=== PATIENT | male | born 1990 | race Caucasian/White ===

== ENCOUNTER 2018-03-30 12:29 | Emergency (ER) | payer BC ==
[~2018-03-30] VITALS: Ht 175.3 cm; Wt 108.9 kg
[2018-03-30] MEDS ORDERED: AMOX1TAB61 PO (13:08)
[2018-03-30] MEDS ORDERED: NAPR-683 PO (13:08)
--- NOTE | 2018-03-30 13:08 | PHYS DOC ---
Past History Past Medical History: No Pertinent History Adult General Chief Complaint Chief Complaint: ANIMAL BITE HPI HPI Patient is a 27 year old right-handed male who presents with complaining of dog bite to right wrist. Patient states he tried to feed a street dog and hit by his right wrist prior to arrival to ER. He denies focal neurodeficit and rated his pain as a mild pain. Patient states he washed his hand extensively at home. Patient is not up-to-date with tetanus immunization. Review of Systems Review of Systems Constitutional: Denies fever or chills [] Eyes: Denies change in visual acuity, redness, or eye pain [] HENT: Denies nasal congestion or sore throat [] Respiratory: Denies cough or shortness of breath [] Cardiovascular: No additional information not addressed in HPI [] GI: Denies abdominal pain, nausea, vomiting, bloody stools or diarrhea [] : Denies dysuria or hematuria [] Musculoskeletal: Denies back pain or joint pain [] Integument: Denies rash or skin lesions [] Neurologic: Denies headache, focal weakness or sensory changes [] Endocrine: Denies polyuria or polydipsia [] All other systems were reviewed and found to be within normal limits, except as documented in this note. Current Medications Current Medications Current Medications Medications (Trade) Dose Ordered Sig/Brian Start Time Stop Time Status Last Admin Dose Admin Diphtheria/ Tetanus/Acell Pertussis (Boostrix) 0.5 ml ONCE ONCE 03/30/18 13:15 03/30/18 13:16 Allergies Allergies Allergies Coded Allergies Type Severity Reaction Last Updated Verified No Known Drug Allergies 03/30/18 No Physical Exam Physical Exam Constitutional: Well developed, well nourished, no acute distress, non-toxic appearance. [] HENT: Normocephalic, atraumatic Eyes: PERRLA, EOMI, conjunctiva normal, no discharge. [] Neck: Normal range of motion, no tenderness, supple, no stridor. [] Cardiovascular:Heart rate regular rhythm, no murmur [] Lungs & Thorax: Bilateral breath sounds clear to auscultation [][] Skin: Warm, dry, no erythema, no rash. [] Back: No tenderness, no CVA tenderness. [] Extremities: 1 cm superficial laceration of volar side of the right place with few area of abrasion without active bleeding, No tenderness, no cyanosis, no clubbing, ROM intact, no edema. [] Neurologic: Alert and oriented X 3, normal motor function, normal sensory function, no focal deficits noted. [] Psychologic: Affect normal, judgement normal, mood normal. [] EKG EKG [] Radiology/Procedures Radiology/Procedures [] Course & Med Decision Making Course & Med Decision Making Evaluation of patient in ER showed 27-year-old male patient with street dog bite to right wrist. Patient refused to have rabies vaccine. Superficial laceration of right wrist was cleaned and and Steri-Strip and dressing was applied and patient instructed to follow with his primary care physician or public health department in the emergency room for rabies vaccination. Dragon Disclaimer Dragon Disclaimer This electronic medical record was generated, in whole or in part, using a voice recognition dictation system. Departure Departure: Impression: Primary Impression: Dog bite of right wrist Additional Impression: Not up to date with tetanus toxoid immunization Disposition: HOME, SELF-CARE (@1305) Condition: IMPROVED Referrals: PCP,NO (PCP) Patient Instructions: Animal Bite, Rabies Additional Instructions: Keep wound clean and dry Follow-up with your primary care physician in 2-3 days Return to ER if not getting better Follow-up with Public health department or emergency room if you change your mind regarding getting rabies vaccine Scripts Naproxen (NAPROSYN) 500 Mg Tablet 500 MG PO BID for pain, #14 TAB Prov: MICHAEL GREENWOOD MD 03/30/18 Amoxicillin/Potassium Clav (AUGMENTIN 875-125 TABLET) 1 Each Tablet 1 TAB PO BID for infection, #14 TAB Prov: MICHAEL GREENWOOD MD 03/30/18 Problem Qualifiers MICHAEL GREENWOOD MD Mar 30, 2018 13:08
[2018-03-30] MEDS ORDERED: DIPHTH,PERTUSS(ACELL),TET TOX 0.5 ML DISP.SYRIN. VAX IM ONE (13:15)
[2018-03-30 14:12] VITALS: BP 131/85
== END 2018-03-30 14:14 | disposition home or self-care (01) ==
LOC: ER 12:29
DX: S61.511A Laceration without foreign body of right wrist, initial encounter (principal); S61.551A Open bite of right wrist, initial encounter; W54.0XXA Bitten by dog, initial encounter; Y93.89 Activity, other specified; Y92.89 Other specified places as the place of occurrence of the external cause; Y99.8 Other external cause status
CPT/HCPCS: 90471; 90715; 99283-25

== ENCOUNTER 2018-04-02 12:18 | Emergency (ER) | payer BC ==
[~2018-04-02] VITALS: Ht 175.3 cm; Wt 108.9 kg
[~2018-04-02 12:18] MED LIST: AMOX1TAB61 PO; NAPR-683 PO
[2018-04-02 12:32] VITALS: BP 115/76
--- NOTE | 2018-04-02 13:10 | PHYS DOC ---
Past History Past Medical History: Other Past Surgical History: Other Smoking: Cigarettes Alcohol Use: Occasionally Drug Use: Marijuana Adult General Chief Complaint Chief Complaint: WRIST PAIN HPI HPI Patient is a 27-year-old male presents complaining of increasing right hand pain and swelling. 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 Denies any fever. Denies any purulent drainage. He is right-hand dominant. Review of Systems Review of Systems Constitutional: Denies fever or chills [] Eyes: Denies change in visual acuity, redness, or eye pain [] HENT: Denies nasal congestion or sore throat [] Respiratory: Denies cough or shortness of breath [] Cardiovascular: No no chest pain or palpitations[] GI: Denies abdominal pain, nausea, vomiting, bloody stools or diarrhea [] : Denies dysuria or hematuria [] Musculoskeletal: Denies back pain, see history of present illness[] Integument: Denies rash or skin lesions [] Neurologic: Denies headache, focal weakness or sensory changes [] Endocrine: Denies polyuria or polydipsia [] All other systems were reviewed and found to be within normal limits, except as documented in this note. Current Medications Current Medications Current Medications Medications (Trade) Dose Ordered Sig/Brian Start Time Stop Time Status Last Admin Dose Admin Clindamycin Phosphate 50 ml @ 100 mls/hr Q8HRS 04/02/18 14:00 UNV Levofloxacin/ Dextrose 100 ml @ 100 mls/hr 1X ONCE 04/02/18 13:00 04/02/18 13:59 UNV Allergies Allergies Allergies Coded Allergies Type Severity Reaction Last Updated Verified No Known Drug Allergies 04/02/18 No Physical Exam Physical Exam Constitutional: Well developed, well nourished, no acute distress, non-toxic appearance. [] HENT: Normocephalic, atraumatic, bilateral external ears normal, oropharynx moist, no oral exudates, nose normal. [] Eyes: PERRLA, EOMI, conjunctiva normal, no discharge. [] Neck: Normal range of motion, no tenderness, supple, no stridor. [] Cardiovascular:Heart rate regular rhythm, no murmur [] Lungs & Thorax: Bilateral breath sounds clear to auscultation [] Abdomen: Not examined. [] Skin: Warm, dry, mild erythema around the bite site, no purulent drainage. [] Back: No tenderness, no CVA tenderness. [] Extremities: Tenderness and swelling over the thenar eminence. Decreased range of motion with finger to thumb. 2 point is less than 5 mm. Capillary refill is less than 2 seconds, no cyanosis, no clubbing, . [] Neurologic: Alert and oriented X 3, normal motor function, normal sensory function, no focal deficits noted. [] Psychologic: Affect normal, judgement normal, mood normal. [] Current Patient Data Vital Signs Vital Signs Date Time Temp Pulse Resp B/P (MAP) Pulse Ox O2 Delivery O2 Flow Rate FiO2 04/02/18 12:32 97.9 79 18 100 Room Air EKG EKG [] Radiology/Procedures Radiology/Procedures [] Course & Med Decision Making Course & Med Decision Making Pertinent Labs and Imaging studies reviewed. (See chart for details) ED course and medical decision making: Patient arrived, was placed in bed, and tolerated exam well. Concerned about him failing outpatient treatment after initially doing better. Patient had IV access established and was given IV antibiotics. He was taken to and from x-ray without any complications. Initial consultation was made with [facility]. They do not have the hand expertise and so deferred on accepting the patient. Consultation then was made with [facility], accepted the patient in transfer. They request that the he be sent to the emergency department for initial evaluation. Also to keep the patient nothing by mouth.[] Dragon Disclaimer Dragon Disclaimer This electronic medical record was generated, in whole or in part, using a voice recognition dictation system. Departure Departure: Impression: Primary Impression: Dog bite of right wrist with infection Additional Impression: Failure of outpatient treatment Disposition: 05 TRANSFER OTHER Condition: IMPROVED Referrals: PCP,NO (PCP) Problem Qualifiers Primary Impression: Dog bite of right wrist with infection Encounter type: subsequent encounter Qualified Codes: S61.551D - Open bite of right wrist, subsequent encounter; L08.9 - Local infection of the skin and subcutaneous tissue, unspecified; W54.0XXD - Bitten by dog, subsequent encounter BIRDIE WEST DO Apr 02, 2018 13:10
[2018-04-02 13:20] LABS: BASO # 0.1 x10^3/uL (0.0-0.2); BASO % 1 % (0-3); EOS # 0.3 x10^3/uL (0.0-0.7); EOS % 3 % (0-3); HEMATOCRIT 44.8 % (39.0-53.0); HEMOGLOBIN 15.1 g/dL (13.0-17.5); LYMPH # 1.9 x10^3/uL (1.0-4.8); LYMPH % 17 % (24-48); MEAN CORPUSCULAR HEMOGLOBIN 31 pg (25-35); MEAN CORPUSCULAR HGB CONC 34 g/dL (31-37); MEAN CORPUSCULAR VOLUME 90 fL (79-100); MONO # 0.4 x10^3/uL (0.0-1.1); MONO % 4 % (0-9); NEUT # 8.5 x10^3uL (1.8-7.7); NEUT % 76 % (31-73); PLATELET COUNT 235 x10^3/uL (140-400); RED BLOOD COUNT 4.96 x10^6/uL (4.30-5.70); RED CELL DISTRIBUTION WIDTH 13.5 % (11.5-14.5); WHITE BLOOD COUNT 11.2 x10^3/uL (4.0-11.0)
--- NOTE | 2018-04-02 13:20 | RAD ---
Examination: 3 views of the right hand HISTORY: History of dog bite 1 week back, increasing pain, swelling over the thenar region COMPARISON: None available FINDINGS: The alignment of the metacarpophalangeal joints, interphalangeal joint grossly appears unremarkable. There is no acute fracture or dislocation identified. IMPRESSION: No acute osseous findings Electronically signed by: Jt Whiting MD (04/02/2018 1:17 PM) [facility]
[2018-04-02 13:33] LABS: ALBUMIN 3.8 g/dL (3.4-5.0); ALBUMIN/GLOBULIN RATIO 1.1 (1.0-1.7); CREATININE 0.8 mg/dL (0.7-1.3); GFR 116.9; POTASSIUM 4.3 mmol/L (3.5-5.1); TOTAL BILIRUBIN 0.5 mg/dL (0.2-1.0); TOTAL PROTEIN 7.4 g/dL (6.4-8.2)
[2018-04-02] MEDS ORDERED: CLINDAMYCIN 600MG PREMIX 50 ML IV SCH (14:00)
[2018-04-02 14:25] LABS: SEDIMENTATION RATE 18 (0-15)
== END 2018-04-02 14:46 | disposition short-term general hospital (02) ==
LOC: ER 12:18
DX: S61.551A Open bite of right wrist, initial encounter (principal); L08.9 Local infection of the skin and subcutaneous tissue, unspecified; F17.210 Nicotine dependence, cigarettes, uncomplicated; W54.0XXA Bitten by dog, initial encounter; Y93.89 Activity, other specified; Y92.89 Other specified places as the place of occurrence of the external cause; Y99.8 Other external cause status
CPT/HCPCS: 36415; 73130; 80053; 85025; 85610; 85651; 86140; 96365; 96368; 99285; J1956; J3490

== ENCOUNTER 2019-10-13 15:29 | Emergency (ER) | payer SELFPAY ==
[~2019-10-13] VITALS: Ht 175.3 cm; Wt 120.5 kg
[2019-10-13 15:35] VITALS: BP 117/81
--- NOTE | 2019-10-13 15:58 | PHYS DOC ---
Past History Past Medical History: No Pertinent History, Other Past Surgical History: Other Additional Past Surgical Histo: RIGHT LOWER LEG TITANIUM EHSAN Smoking: Cigarettes Alcohol Use: Occasionally Drug Use: Marijuana Adult General Chief Complaint Chief Complaint: ANKLE PROBLEM HPI HPI Patient is a 28-year-old male who presents with right foot pain. Patient reports 2 days ago walking up stairs in his house when entire staircase gave way, patient reports falling greater than 6 feet onto basement below. Patient reports landing on his right foot, unknown mechanism of injury or if he twisted foot but he reports ever since then, worsened pain to left lateral malleoli and extreme difficulty when ambulating. Patient has history of right orthopedic fixation of right lower extremity stemming from injury in high school. Patient reports a dull pain on right lateral ankle with mild radiation into foot and mild radiation to right lateral knee. Has not taken anything for pain. Patient reports abrasions to bilateral upper extremities in addition to generalized musculoskeletal soreness from impact of fall but has no other concerns today besides ongoing right ankle pain. Review of Systems Review of Systems Fourteen body systems of review of systems have been reviewed. See HPI for pertinent positives and negative responses, other damon all other systems are negative, non-pertinent or non-contributory Allergies Allergies Allergies Coded Allergies Type Severity Reaction Last Updated Verified No Known Drug Allergies 04/02/18 No Physical Exam Physical Exam Constitutional: Well developed, well nourished, no acute distress, non-toxic appearance. HENT: Normocephalic, atraumatic, bilateral external ears normal, oropharynx moist, no oral exudates, nose normal. Eyes: PERRLA, EOMI, conjunctiva normal, no discharge. Neck: Normal range of motion, no tenderness, supple, no stridor. Cardiovascular: Heart rate regular, sinus rhythm, no murmurs rubs or gallops Lungs & Thorax: Bilateral breath sounds clear to auscultation Abdomen: Bowel sounds normal, soft, no tenderness, no masses, no pulsatile masses. Nonsurgical abdomen, no peritoneal signs Skin: Warm, dry, no erythema, no rash. Back: No tenderness, no CVA tenderness. Extremities: No cyanosis, no clubbing, ROM intact, no edema. Abrasions noted to posterior aspects of bilateral upper extremities Right foot and ankle foot and Ankle Proximal Tibia and fibula nontender Medial malleolus nontender Lateral malleolus tender to palpation Calcaneus nontender Tarsometatarsal region tender to palpation Base of 5th nontender Rest of foot and ankle without marked tenderness Varus and Valgus Stress of ankle joint without significant laxity Decreased range of motion in all planes due to pain but otherwise 5/5 strength Skin on plantar section of midfoot without ecchymosis Capillary refill <2seconds and distal Sensation to light touch in tact per routine Compartments surrounding are soft Negative Morgan sign Neurologic: Alert and oriented X 3, grossly normal motor & sensory function, no focal deficits noted. Psychologic: Affect normal, judgement normal, mood normal. Current Patient Data Vital Signs Vital Signs Date Time Temp Pulse Resp B/P (MAP) Pulse Ox O2 Delivery O2 Flow Rate FiO2 10/13/19 15:35 97.9 74 20 117/81 (93) 97 Room Air EKG EKG [] Radiology/Procedures Radiology/Procedures PROCEDURE: ANKLE RIGHT 3V Right tibia and fibula 2 views: Reason for examination: Trauma. Fell down greater than 5 foot landing on right foot. Plate and screws are present in the distal fibula. Acute site of fracture of the right tibia and fibula are not seen. Bone density is normal. No abnormal periosteal reaction is seen. Knee and ankle joints appear to be maintained. IMPRESSION: No acute abnormality seen at the right tibia or fibula. Right ankle 3 views: Again noted is a plate and multiple screws in the distal fibula. No acute fracture or dislocation is seen at the right ankle. The bone density is normal. No abnormal periosteal reaction is seen. Joint spaces appear to be maintained. IMPRESSION: No acute bony abnormality at the right ankle. Right foot 3 views: No acute fracture or dislocation is seen. The bone density is normal. No abnormal periosteal reaction is seen. Joint spaces are maintained. IMPRESSION: No acute bony abnormality at the right foot. Electronically signed by: Niki Forrest MD (10/13/2019 4:11 PM) [facility]I Course & Med Decision Making Course & Med Decision Making Patient seen and evaluated on immediate ER arrival ABCs grossly non-concerning Comprehensive history and physical exam obtained, pertinent imaging studies ordered Radiographs reviewed with patient, no immediate bony abnormalities apparent by myself and radiologist, this was communicated with patient Discussed limited utility in further laboratory, diagnostic imaging or other interventions in the emergency department setting Joint decision to discharge home in stable condition with close PCP follow-up advised in upcoming 1 to 9 days time Discussed need for continued supportive care, NSAIDs or Tylenol for as needed pain control, and encourage performing ankle exercises and ambulating as much as tolerated Strict return precautions discussed at length with good understanding by patient, all questions and concerns addressed prior to ER departure in stable condition Parminder Disclaimer Parminder Disclaimer This electronic medical record was generated, in whole or in part, using a voice recognition dictation system. Departure Departure: Impression: Primary Impression: Contusion of ankle, right Disposition: 01 HOME/RESIDENCE PRIOR TO ADM Condition: STABLE Referrals: PCP,NO (PCP) Patient Instructions: Ankle Exercises (for Rehabilitation), RICE - Routine Care for Injuries Justification of Admission: Justification of Admission: Justification of Admission Dx: N/A BRIAN NEWELL DO Oct 13, 2019 15:58
--- NOTE | 2019-10-13 16:13 | RAD ---
Right tibia and fibula 2 views: Reason for examination: Trauma. Fell down greater than 5 foot landing on right foot. Plate and screws are present in the distal fibula. Acute site of fracture of the right tibia and fibula are not seen. Bone density is normal. No abnormal periosteal reaction is seen. Knee and ankle joints appear to be maintained. IMPRESSION: No acute abnormality seen at the right tibia or fibula. Right ankle 3 views: Again noted is a plate and multiple screws in the distal fibula. No acute fracture or dislocation is seen at the right ankle. The bone density is normal. No abnormal periosteal reaction is seen. Joint spaces appear to be maintained. IMPRESSION: No acute bony abnormality at the right ankle. Right foot 3 views: No acute fracture or dislocation is seen. The bone density is normal. No abnormal periosteal reaction is seen. Joint spaces are maintained. IMPRESSION: No acute bony abnormality at the right foot. Electronically signed by: Niki Forrest MD (10/13/2019 4:11 PM) JUNI
== END 2019-10-13 16:34 | disposition home or self-care (01) ==
LOC: ER 15:29
DX: S90.01XA Contusion of right ankle, initial encounter (principal); W17.89XA Other fall from one level to another, initial encounter; Y93.01 Activity, walking, marching and hiking; Y92.89 Other specified places as the place of occurrence of the external cause; Y99.8 Other external cause status; F17.210 Nicotine dependence, cigarettes, uncomplicated
CPT/HCPCS: 73590; 73610; 73630; 99284

== ENCOUNTER 2019-11-16 17:21 | Emergency (ER) | payer BC ==
[~2019-11-16] VITALS: Ht 175.3 cm; Wt 120.5 kg
--- NOTE | 2019-11-16 18:16 | RAD ---
Exam: Right ankle 3 views INDICATION: Injury from fall TECHNIQUE: Frontal, lateral and oblique views of the right ankle Comparisons: None FINDINGS: Lateral fixation plate along the distal fibula with numerous fixation screws. Bone mineralization is normal. Joint spaces are well-maintained. No acute or healed fractures. Soft tissues are unremarkable. IMPRESSION: No acute osseous abnormality identified. Electronically signed by: Valeria Carter MD (11/16/2019 6:13 PM) RAY
--- NOTE | 2019-11-16 18:44 | PHYS DOC ---
Past History Past Medical History: No Pertinent History, Other Past Surgical History: Other Additional Past Surgical Histo: RIGHT LOWER LEG TITANIUM EHSAN Smoking: Cigarettes Alcohol Use: Occasionally Drug Use: Marijuana General Adult EDM: Chief Complaint: LOWEREXTREMITY INJURY HPI: HPI: 28-year-old male presents with continued right ankle pain. He had an injury 1 month ago when he had a staircase collapsed and he fell. He is not sure exactly how he landed but he has had pain underneath his calcaneus and the lateral side of his ankle. X-rays at that time were negative. He presents for repeat x-rays and he does understand why it still hurts a month later. Patient does work on his feet every day. He denies any other injuries or complaints. Review of Systems: Review of Systems: Constitutional: Denies fever or chills Eyes: Denies change in visual acuity HENT: Denies nasal congestion or sore throat Respiratory: Denies cough or shortness of breath Cardiovascular: Denies chest pain or edema GI: Denies abdominal pain, nausea, vomiting, bloody stools or diarrhea : Denies dysuria Musculoskeletal: Right ankle pain Integument: Denies rash Neurologic: Denies headache, focal weakness or sensory changes Endocrine: Denies polyuria or polydipsia Lymphatic: Denies swollen glands Psychiatric: Denies depression or anxiety Heart Score: Risk Factors: Risk Factors: DM, Current or recent (<one month) smoker, HTN, HLP, family history of CAD, obesity. Risk Scores: Score 0 - 3: 2.5% MACE over next 6 weeks - Discharge Home Score 4 - 6: 20.3% MACE over next 6 weeks - Admit for Clinical Observation Score 7 - 10: 72.7% MACE over next 6 weeks - Early Invasive Strategies Allergies: Allergies: Allergies Coded Allergies Type Severity Reaction Last Updated Verified No Known Drug Allergies 04/02/18 No Physical Exam: PE: Constitutional: Well developed, well nourished, no acute distress, non-toxic appearance. [] HENT: Normocephalic, atraumatic, bilateral external ears normal, oropharynx moist, no oral exudates, nose normal. [] Eyes: PERRLA, EOMI, conjunctiva normal, no discharge. [] Neck: Normal range of motion, no tenderness, supple, no stridor. [] Cardiovascular: Heart rate regular rhythm, no murmur [] Lungs & Thorax: Bilateral breath sounds clear to auscultation [] Abdomen: Bowel sounds normal, soft, no tenderness, no masses, no pulsatile masses. [] Skin: Warm, dry, no erythema, no rash. [] Back: No tenderness, no CVA tenderness. [] Extremities: No tenderness, no cyanosis, no clubbing, ROM intact, no edema. [] Neurologic: Alert and oriented X 3, normal motor function, normal sensory function, no focal deficits noted. [] Psychologic: Affect normal, judgement normal, mood normal. [] EKG: EKG: [] Radiology/Procedures: Radiology/Procedures: [] Impressions: Exam: Right ankle 3 views INDICATION: Injury from fall TECHNIQUE: Frontal, lateral and oblique views of the right ankle Comparisons: None FINDINGS: Lateral fixation plate along the distal fibula with numerous fixation screws. Bone mineralization is normal. Joint spaces are well-maintained. No acute or healed fractures. Soft tissues are unremarkable. IMPRESSION: No acute osseous abnormality identified. Electronically signed by: Valeria Tan MD (11/16/2019 6:13 PM) [facility] DICTATED AND SIGNED BY: VALERIA TAN MD DATE: 11/16/191812 CC: PCP,JAY; CHAITANYA CARMICHAEL DO ~ Course & Med Decision Making: Course & Med Decision Making Pertinent Labs and Imaging studies reviewed. (See chart for details) The patient's pain is mostly underneath calcaneus. His x-ray is negative for fracture. I do not see a significant spur. This is likely a deep contusion that continues to be exacerbated by his daily activity. It will get better, but it may just take time. He is already taking naproxen. I have advised he attempt to do ice therapy if possible during the day. He is stable for discharge at this time. [] Dragon Disclaimer: Dragon Disclaimer: This electronic medical record was generated, in whole or in part, using a voice recognition dictation system. Departure Departure: Impression: Primary Impression: Contusion of right foot or heel Disposition: 01 HOME/RESIDENCE PRIOR TO ADM Condition: STABLE Referrals: PCP,JAY (PCP) Patient Instructions: Contusions-[facility] KIARA [place] DO Nov 16, 2019 18:44
== END 2019-11-16 18:48 | disposition home or self-care (01) ==
LOC: ER 17:21
DX: S90.31XA Contusion of right foot, initial encounter (principal); F17.210 Nicotine dependence, cigarettes, uncomplicated; W10.8XXA Fall (on) (from) other stairs and steps, initial encounter; Y93.89 Activity, other specified; Y92.89 Other specified places as the place of occurrence of the external cause; Y99.8 Other external cause status
CPT/HCPCS: 73610; 99283